=== PATIENT | female | born 1970 | race Caucasian/White ===

== ENCOUNTER → 2017-10-13 07:02 | Outpatient (CLI) | payer OTHER, SELFPAY ==
[2017-10-13 07:30] LABS: Basophils % 0.5 % (0.1-2.0); Eosinophils # 0.4 K/mm3 (0.0-0.4); Eosinophils % 4.9 % (0.1-12.0); Hematocrit 41.7 % (37.0-47.0); Hemoglobin 13.6 g/dL (12.2-16.2); Lymphocytes % 27.6 K/mm3 (10-50); Mean Corpuscular HGB Conc 32.6 g/dL (31.8-35.4); Mean Corpuscular Hemoglobin 29.4 pg (27.0-31.2); Mean Platelet Volume 7.3 fl (7.4-10.4); Monocytes # 0.6 K/mm3 (0.1-1.0); Monocytes % 8.5 % (1.7-9.3); Neutrophils # 4.3 K/mm3 (1.8-7.8); Neutrophils % 58.5 % (37.0-80.0); Platelet Count 402 K/mm3 (142-424); Red Blood Count 4.64 M/mm3 (4.20-5.40); Red Cell Distribution Width 13.1 % (11.5-17.5); White Blood Count 7.4 K/mm3 (4.8-10.8)
[2017-10-13 07:54] LABS: Alanine Aminotransferase 28 U/L (12-78); Albumin Level 3.6 gm/dL (3.4-5.0); Alkaline Phosphatase 123 U/L (46-116); Anion Gap 12.8 mEq/L (5-15); Aspartate Amino Transferase 16 U/L (15-37); Bilirubin,Total 0.3 mg/dL (0.2-1.0); Blood Urea Nitrogen 7 mg/dL (7-18); Carbon Dioxide 28 mmol/L (21.0-32.0); Chloride 105 mmol/L (98-107); Chol/HDL Ratio 5.5 (1-3.5); Cholesterol 203 mg/dL (140-200); Estimated Glomerular Filt Rate 78 ml/min (>60); GFR (African American) 94 ML/MIN (>60); Globulin 3.6 gm/dl (1.3-3.2); Glucose 109 mg/dL (74-106); HDL Cholesterol 37 mg/dL (29-89); LDL Cholesterol 120 mg/dL (0-130); Potassium 3.8 mmoL/L (3.5-5.1); Sodium 142 mmol/L (136-145); Thyroid Stimulating Hormone 2.24 uIU/ml (0.358-3.740); Total Protein,Serum 7.2 gm/dL (6.4-8.2); Triglycerides 231 mg/dL (30-200); VLDL Cholesterol 46 mg/dL (0-40)
[2017-10-14 06:30] LABS: Vitamin D 25 Hydroxy 11.8 ng/mL (30.0-100.0)
[2017-10-14 10:38] LABS: Vitamin B12 284 pg/mL (232-1245)
== END ==
LOC: LAB 07:04
PROVIDERS: PCP Internal Medicine Adolescent Medicine; Visit Provider Nurse Practitioner Family
DX: R20.2 Paresthesia of skin (principal); Z00.00 Encounter for general adult medical examination without abnormal findings
CPT/HCPCS: 36415; 80053; 80061; 82607; 82652; 84443; 85025

== ENCOUNTER → 2017-10-14 14:51 | Outpatient (CLI) | payer OTHER, SELFPAY ==
--- NOTE | 2017-10-14 14:54 | MM_ITS ---
MM Dig screening mamm BI w/CAD CAD Screening COMPARISON: None, this is baseline INDICATION: There is no personal or family history of breast cancer TECHNIQUE: Standard CC and MLO images were obtained. R2 CAD reviewed. FINDINGS: Mild to moderate fibroglandular densities are seen in the central portions of both breasts. There is no suspicious lesion and there are no suspicious microcalcifications. There are small nodes in both axilla. IMPRESSION: Mild to moderate breast density with no suspicious lesion seen BI-RADS Category: 1 Negative RECOMMENDED FOLLOW-UP: 1YR - 1 YEAR FOLLOW-UP (A letter has been sent to the patient regarding results of the study.)
== END ==
PROVIDERS: PCP Internal Medicine Adolescent Medicine; Visit Provider Nurse Practitioner Family
DX: Z12.31 Encounter for screening mammogram for malignant neoplasm of breast (principal)
CPT/HCPCS: 77067

== ENCOUNTER → 2018-07-13 07:03 | Outpatient (CLI) | payer OTHER, SELFPAY ==
[2018-07-13 08:18] LABS: Alanine Aminotransferase 33 U/L (12-78); Albumin Level 3.9 gm/dL (3.4-5.0); Albumin/Globulin Ratio 1.3 (1.1-1.8); Alkaline Phosphatase 121 U/L (46-116); Anion Gap 14.6 mEq/L (5-15); Aspartate Amino Transferase 18 U/L (15-37); Bilirubin,Total 0.3 mg/dL (0.2-1.0); Blood Urea Nitrogen 10 mg/dL (7-18); Calcium 9.4 mg/dL (8.5-10.1); Carbon Dioxide 28 mmol/L (21.0-32.0); Chloride 101 mmol/L (98-107); Chol/HDL Ratio 2.2 (1-3.5); Cholesterol 154 mg/dL (140-200); Creatinine,Serum 0.77 mg/dL (0.55-1.02); Estimated Glomerular Filt Rate 81 ml/min (>60); GFR (African American) 98 ML/MIN (>60); Globulin 3.1 gm/dl (1.3-3.2); Glucose 102 mg/dL (74-106); HDL Cholesterol 69 mg/dL (29-89); LDL Cholesterol 61 mg/dL (0-130); Potassium 4.6 mmoL/L (3.5-5.1); Sodium 139 mmol/L (136-145); Triglycerides 120 mg/dL (30-200); VLDL Cholesterol 24 mg/dL (0-40)
[2018-07-14 15:37] LABS: Vitamin B12 >2000 pg/mL (232-1245)
== END ==
PROVIDERS: Visit Provider Nurse Practitioner Family
DX: Z00.00 Encounter for general adult medical examination without abnormal findings (principal); E78.2 Mixed hyperlipidemia; E53.8 Deficiency of other specified B group vitamins; E55.9 Vitamin D deficiency, unspecified
CPT/HCPCS: 36415; 80053; 80061; 82607; 82652

== ENCOUNTER → 2018-08-06 09:45 | Outpatient (CLI) | payer OTHER, SELFPAY ==
--- NOTE | 2018-08-06 09:47 | XR_ITS ---
XR ankle wt bearing LT min 3V HISTORY: Follow-up fracture of the lateral malleolus ITS.REASON: LT ANKLE FX ORDERING PHYSICIAN: Sheryl Miranda MD PATIENT AGE: 47 years Comparison: 07/20/2018 FINDINGS: Minimally distracted transverse fracture involves the tip lateral malleolus as before the distal distraction appears somewhat improved. There is overlying soft tissue swelling. No other significant anomalies are evident. IMPRESSION: Transverse fracture on the tip of the lateral malleolus shows slight decreased distraction
== END ==
PROVIDERS: PCP Nurse Practitioner Family; Visit Provider Orthopaedic Surgery
DX: S93.409A Sprain of unspecified ligament of unspecified ankle, initial encounter (principal)
CPT/HCPCS: 73610

== ENCOUNTER → 2018-09-10 09:43 | Outpatient (CLI) | payer OTHER, SELFPAY ==
--- NOTE | 2018-09-10 09:46 | XR_ITS ---
XR ankle wt bearing LT min 3V HISTORY: Follow-up fracture ITS.REASON: LT ANKLE FX ORDERING PHYSICIAN: Sheryl Miranda MD PATIENT AGE: 47 years Comparison: 08/06/2018 FINDINGS: Nondisplaced fracture involving the tip of the lateral malleolus is once again noted. Fracture lines are somewhat more circumscribed and nondisplaced. Soft tissue swelling has improved. IMPRESSION: Healing avulsion fracture of the tip of the lateral malleolus
== END ==
PROVIDERS: PCP Internal Medicine Adolescent Medicine; Visit Provider Orthopaedic Surgery
DX: S82.892A Other fracture of left lower leg, initial encounter for closed fracture (principal)
CPT/HCPCS: 73610

== ENCOUNTER 2018-10-06 15:30 | Outpatient (RCR) | payer OTHER, SELFPAY ==
--- NOTE | 2018-09-14 10:59 | HMH.PTOPEV ---
PT Outpatient Evaluation Rehab PT Outpatient Evaluation Start: 09/14/18 10:24 Freq: Status: Active Protocol: Document 09/14/18 10:24 [place]IA (Rec: 09/14/18 10:49 PHORNE [id number]) Electronically Signed By Jackson Pitt, PT 09/14/18 10:24 Outpatient Therapy Subjective History Subjective History Pt is a 47 yowf with left lateral malleolus avulsion fracture with complaints of instability, tenderness, and burning along the lateral malleolus. Pt reports walking down stairs and and left ankle giving out on the last step and inverting causing an audible pop and her to fall over. Incident was on 07/20/18 and pt saw a doctor and was placed in a CAM boot with NWB on 07/23. On 09/01/18 pt was WBAT with and without boot. Pt reports not wearing the boot at home which causes some pain . Pt reports being in 0/10 pain at the moment but being in 4/10 pain at worst. Pain is brought on when she does not wear the boot or she does activity. Pain is relieved when resting or wearing the boot. Pt reports pain is a sharp, burning sensation along the lateral mallelous. Pt finds stairs to be most difficult. Pt states being a chronic smoker. 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 Chief Complaint Stiff Gives out/Unstable Weakness Symptom Type Sharp Burning Symptoms Relieved By Rest/Positioning Ice Symptoms Aggravated By Standing Physical Activity Walking Prior Functional Limitations None Current Functional Limitations Recreation Activity Walking Stairs Balance Symptom Description Intermitt
== END 2018-10-06 15:35 | disposition home or self-care (01) ==
LOC: PT 15:30
PROVIDERS: Visit Provider Orthopaedic Surgery
DX: S82.62XD Displaced fracture of lateral malleolus of left fibula, subsequent encounter for closed fracture with routine healing (principal); S93.401A Sprain of unspecified ligament of right ankle, initial encounter
CPT/HCPCS: 97010; 97014; 97016; 97033; 97110; 97112; 97163; G0283

== ENCOUNTER → 2019-02-17 08:40 | Outpatient (CLI) | payer OTHER, SELFPAY ==
--- NOTE | 2019-02-17 08:46 | MM_ITS ---
MM Dig screening mamm BI w/CAD CAD Screening COMPARISON: Digital mammograms with CAD 10/14/2017 INDICATION: There is no personal or family history of breast cancer TECHNIQUE: Standard CC and MLO images were obtained. R2 CAD reviewed. FINDINGS: Scattered fibroglandular densities are seen in both breasts. There is a benign-appearing calcification right breast. There is a nodular density right axilla likely a low-lying noted and this was seen previously. There is no suspicious lesion and no suspicious microcalcifications. IMPRESSION: Fibrofatty parenchyma with no suspicious lesion seen BI-RADS Category: 2 Benign Finding(s) RECOMMENDED FOLLOW-UP: 1YR - 1 YEAR FOLLOW-UP (A letter has been sent to the patient regarding results of the study.)
== END ==
PROVIDERS: PCP Nurse Practitioner Family; Visit Provider Nurse Practitioner Family
DX: Z12.31 Encounter for screening mammogram for malignant neoplasm of breast (principal)
CPT/HCPCS: 77067

== ENCOUNTER → 2019-07-14 07:02 | Outpatient (CLI) | payer OTHER, SELFPAY ==
[2019-07-14 11:44] LABS: Alanine Aminotransferase 20 U/L (12-78); Albumin Level 4.2 gm/dL (3.4-5.0); Albumin/Globulin Ratio 1.5 (1.1-1.8); Alkaline Phosphatase 100 U/L (46-116); Anion Gap 15.6 mEq/L (5-15); Aspartate Amino Transferase 16 U/L (15-37); Bilirubin,Total 0.4 mg/dL (0.2-1.0); Blood Urea Nitrogen 10 mg/dL (7-18); Calcium 9.5 mg/dL (8.5-10.1); Carbon Dioxide 27 mmol/L (21.0-32.0); Chloride 103 mmol/L (98-107); Chol/HDL Ratio 2.3 (1-3.5); Cholesterol 134 mg/dL (140-200); Creatinine,Serum 0.84 mg/dL (0.55-1.02); Estimated Glomerular Filt Rate 73 ml/min (>60); GFR (African American) 88 ML/MIN (>60); Globulin 2.8 gm/dl (1.3-3.2); Glucose 98 mg/dL (74-106); HDL Cholesterol 59 mg/dL (29-89); LDL Cholesterol 55 mg/dL (0-130); Potassium 4.6 mmoL/L (3.5-5.1); Sodium 141 mmol/L (136-145); Triglycerides 99 mg/dL (30-200); VLDL Cholesterol 20 mg/dL (0-40)
[2019-07-15 21:11] LABS: Vitamin B12 >2000 pg/mL (232-1245)
[2019-07-15 21:12] LABS: Vitamin D 25 Hydroxy 41.7 ng/mL (30.0-100.0)
== END ==
PROVIDERS: Visit Provider Nurse Practitioner Family
DX: Z00.00 Encounter for general adult medical examination without abnormal findings (principal); E78.2 Mixed hyperlipidemia; E53.8 Deficiency of other specified B group vitamins; E55.9 Vitamin D deficiency, unspecified
CPT/HCPCS: 36415; 80053; 80061; 82607; 82652

== ENCOUNTER 2020-02-15 17:04 | Emergency (ER) | payer OTHER, SELFPAY ==
--- NOTE | 2020-02-15 17:19 | XR_ITS ---
PROCEDURE: XR FOREARM LT 2V CLINICAL INDICATION: pain COMPARISON: No exams were available for comparison FINDINGS: No fracture or dislocation. No lytic or blastic change. There is normal mineralization. The joint spaces are well-preserved. No significant degenerative/arthritic changes. No erosive changes evident. Other findings:None. IMPRESSION: No acute findings. Dictated by: Mario Chavez MD 02/15/2020 18:01 Electronically signed by Mario Chavez MD in [place] 02/15/2020 18:01
[2020-02-15 17:20] VITALS: BP 128/64; PULSE 60; RESP 19; TEMP 36.7; O2SAT 99; BMI 26.6
--- NOTE | 2020-02-15 17:58 | HMH.EDUTC ---
[facility] [place] Disposition Clinical Impression: Left wrist tendonitis, Left wrist pain, Numbness of left hand Disposition: Home, Self-Care Condition on Discharge: Good Instructions: De Quervain Tenosynovitis, DI for Trigger Finger, DI for Carpal Tunnel Syndrome Additional Instructions: Wear the wrist splint that you have as much time as tolerated. Rest the wrist and try to avoid repetitive motions with it. Take the steroids as directed. Start the pack in the morning. Follow up with Dr. Delgadillo (orthopedics). I put in a referral, but you need to call and get yourself an appointment. GO TO THE ER FOR ANY WORSENING SYMPTOMS OR CONCERNS Prescriptions: methylPREDNISolone [Medrol] 4 mg PO DIRECTED 6 Days #21 tab.ds.pk Transmission Status: Received by [facility] Referrals: Natalia Madera APRN [Primary Care Provider] - Arnold Delgadillo MD [Staff Physician] - Time of Disposition: 18:03 Medical Decision Making - Medical Records Medical records reviewed: No: I reviewed the patient's medical records. - Fred Inquiry Pt receiving controlled substance: No Vital Signs: 02/15/20 17:20 02/15/20 18:06 Temperature 98.0 F 98.0 F Temperature Source Temporal Artery Scan Pulse Rate 60 Pulse Rate [Right Brachial] 60 Respiratory Rate 19 19 Blood Pressure 125/64 Blood Pressure [Right Arm] 128/64 Blood Pressure Mean [Right Arm] 85 Blood Pressure Source [Right Arm] Automatic Cuff Blood Pressure Position [Right Arm] Sitting 02 Sat by Pulse Oximetry 99 Oxygen Delivery Method Room Air [facility] [place] HPI - General Stated complaint: Left wrist pain Time Seen by Provider: 02/15/20 17:25 Mode of Arrival: Ambulatory Source of Information: Patient Limitations: No Limitations Description of Symptoms (Recalled from Triage Doc. by RN): PATIENT C/O PAIN TO LEFT WRIST/FOREARM FOR A WHILE, HOWEVER IT HAS GOTTEN PROGRESSIVELY WORSE OVER THE PAST 2 DAYS. 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 She has had these symptoms intermitently for the past several months, but over the past 2 days they have got worse. She denies any known injury or fall that affected the wrist. - Related Data Home Medications Medication Instructions Recorded Confirmed Ropinirole HCl [Requip] 0.5 mg PO BID 06/19/18 09/02/19 Meloxicam [Mobic 7.5mg Tab] 7.5 mg PO DAILY 06/16/19 09/02/19 buPROPion HCL [Wellbutrin 100mg 300 mg PO DAILY 06/16/19 09/02/19 Tablet] cloNIDine HCL [cloNIDine 0.1mg 0.1 mg PO DAILY 09/02/19 09/02/19 Tablet] Previous Rx's Medication Instructions Recorded Ondansetron [Zofran 4mg ODT] 4 mg PO Q8HP PRN #20 tab.rapdis 09/02/19 Cyclobenzaprine HCl [Flexeril 10mg 10 mg PO TID PRN #15 tab 10/13/19 tablet] methylPREDNISolone [Medrol 4mg 4 mg PO DIRECTED #21 tab 10/13/19 tab] methylPREDNISolone [Medrol] 4 mg PO DIRECTED 6 Days #21 02/15/20 tab.ds.pk Allergies Allergy/AdvReac Type Severity Reaction Status Date / Time No Known Allergies Allergy Verified 11/29/18 09:27 - Worker's Comp Is this a Worker's Comp case?: No [facility] History - Hepatitis A Screen Drug use history?: No High risk sexual behaviors?: No History of sexually transmitted infection?: No Currently employed?: No Childcare worker?: No Do you have indoor plumbing?: Yes Do you have electricity?: Yes Attestation statement:: This patient has been screened for Hepatitis A risk factors. I have reviewed the patient's past medical history: Yes Medical History: Reports:: Anxiety, Asthma, Hyperlipidemia Denies:: Cancer, Diabetes Mellitus Type 1, Diabetes Mellitus Type 2, Int
[2020-02-15 18:06] VITALS: BP 125/64; PULSE 60; RESP 19; TEMP 36.7; O2SAT 99
== END 2020-02-15 18:10 | disposition home or self-care (01) ==
PROVIDERS: Emergency Provider Nurse Practitioner Family; PCP Nurse Practitioner Family
DX: M25.532 Pain in left wrist (principal); M77.8 Other enthesopathies, not elsewhere classified; E78.5 Hyperlipidemia, unspecified; F41.9 Anxiety disorder, unspecified; J45.909 Unspecified asthma, uncomplicated; Z79.899 Other long term (current) drug therapy; F17.210 Nicotine dependence, cigarettes, uncomplicated
CPT/HCPCS: 73090; 99201

== ENCOUNTER 2020-03-01 07:57 | Outpatient (RCR) | payer OTHER, SELFPAY ==
--- NOTE | 2020-03-01 09:04 | HMH.OTOPEV ---
OT Inpatient Evaluation Rehab OT Outpatient Eval Start: 03/01/20 08:45 Freq: Status: Active Protocol: Document 03/01/20 08:46 RAYMUNDO (Rec: 03/01/20 09:03 HARLEYJAY [id number]) Electronically Signed By Lori Cardenas OT 03/01/20 08:46 Outpatient Therapy Subjective History Subjective History 49 year old female being referred to OP OT services after having increase L wrist pain ~2-3 weeks. However Patient stated this has been ongoing for several months and wears splint at night. 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 Chief Complaint Pain,Swelling,Weakness, Decreased Child Day Care Teacher Strength Symptom Type Ache,Sharp Symptoms Relieved By Ice Symptoms Aggravated By Physical Activity,Twisting Prior Functional Limitations None Current Functional Limitations Reaching,Lifting Symptom Description Constant but Variable Level of pain today (0-10) 0 Pain scale - at its best (0-10) 0 Pain scale - at its worst (0-10) 4 Wrist/Hand Eval Wrist Range of Motion Left Wrist Limitations of Range of Motion Pain Wrist Extension Active Range of Motion ( 70 degrees) Wrist Flexion Active Range of Motion ( 80 degrees) Wrist Radial Deviation Active Range of 20 Motion (degrees) Wrist Ulnar Deviation Active Range of 30 Motion (degrees) Child Day Care Teacher/Pinch Strength Right Child Day Care Teacher Strength Measurement (lbs) 64 Left Child Day Care Teacher Strength Measurement (lbs) 55 Special Tests Wrist Finklestein Test Positive Left OT Outpatient Assessment Impairments Problems/Impairments Palpation Tenderness,Impaired Strength,Subjective C/O Pain Prognosis Rehab Potential Good Clinical Impression Consistent with Diagnosis Yes Short Term Goals Number of Weeks 3 Decreased Palpation Tenderness Yes Increase Strength Yes: to improve left cracker sprayer strength to 55# Decrease Subjective C/O Pain Yes: 3/10 at worst Patient to be Ind w/ HEP Yes: strengthening Patient to be Ind w/ Advanced HEP Yes: strengthening and decrease swelling Residential Goals Number of Weeks 6 Decreased Palpation Tenderness Yes Increase Strength Yes: L cracker sprayer strength 60# Decrease Subjective C/O Pain Yes: 1/10 at worst Patient to be Ind w/ HEP Yes: advance strengthening Patient to be Ind w/ Advanced HEP Yes: advance strengthening and
== END 2020-03-01 07:59 | disposition home or self-care (01) ==
LOC: OT 07:57
PROVIDERS: Visit Provider Nurse Practitioner Family
DX: M65.4 Radial styloid tenosynovitis [de Quervain] (principal)
CPT/HCPCS: 97014; 97033; 97035; 97165; G0283

== ENCOUNTER → 2020-03-01 09:24 | Outpatient (CLI) | payer OTHER, SELFPAY ==
--- NOTE | 2020-03-01 09:34 | MM_ITS ---
PROCEDURE: MM DIG SCREENING MAMM BI W/CAD Digital Breast Tomosynthesis Included CLINICAL INDICATION: SCREENING There is no personal or family history of breast cancer. COMPARISON: [facility] MM Dig screening mamm BI w/CAD from 10/14/2017 DIG MAMM-SCREEN YESI from 02/17/2019 TECHNIQUE: Standard CC and MLO images and 3D Tomosynthesis was obtained. R2 CAD reviewed. FINDINGS: Mild to moderate scattered fibroglandular densities are seen in the central portions of both breast and the findings are bilateral and symmetrical. There is a low-lying node right axilla. There are fatty replaced nodes in both axilla. There is no new or suspicious lesion in either breast and no suspicious microcalcifications. IMPRESSION: Fibrofatty parenchyma with no suspicious lesions seen BI-RAD Category: 1 Negative FOLLOW-UP: 1YR 1 Year Follow-up (A letter has been sent to the patient regarding results of the study.) Dictated by: Dr. Lowell Busby MD 03/03/2020 08:[address] Lowell Busby MD in [place] 03/03/2020 08:04
== END ==
PROVIDERS: PCP Nurse Practitioner Family; Visit Provider Nurse Practitioner Family
DX: Z12.31 Encounter for screening mammogram for malignant neoplasm of breast (principal)
CPT/HCPCS: 77063; 77067

== ENCOUNTER 2021-03-28 11:07 | Emergency (ER) | payer OTHER, SELFPAY ==
[2021-03-28 11:55] VITALS: BP 131/72; PULSE 82; RESP 17; TEMP 37.4; O2SAT 98; BMI 29.2
--- NOTE | 2021-03-28 12:07 | HMH.EDUTC ---
[facility] [place] Disposition Clinical Impression: Spasm of muscle of lower back Disposition: Home, Self-Care Condition on Discharge: Good Instructions: Low Back Pain, DI for Low Back Pain Additional Instructions: Take Meloxicam medication as prescribed *Not additional anti-inflammatory like motrin, aleve, advil with the above amount of ibuprofen. You can still take Tylenol every 4 hours as needed if you need something else for pain *Ice 20 minutes every 2 hours for the first 48 hours after the initial injury followed by moist heat every 20 minutes 3-4 times a day to affected area *Muscle relaxer every 8 hours as needed for muscle spasms but remember, it WILL cause drowsiness You cannot take it and drive, operate machinery or care for small children. *Keep this area active, no movement leads to more stiffness, However take it easy and avoid heavy lifting pushing or pulling *Follow up with you family doctor if no improvement for further treatment Prescriptions: Cyclobenzaprine HCl [Flexeril 10mg tablet] 10 mg PO TID PRN 30 Days #15 tab PRN Reason: Muscle Spasm Transmission Status: Sent to [facility] Referrals: Natalia Madera APRN [Primary Care Provider] - As needed Time of Disposition: 12:17 Medical Decision Making - Fred Inquiry Pt receiving controlled substance: No Fred was queried for this patient: No Vital Signs: 03/28/21 11:55 Temperature 99.3 F Temperature Source Oral Pulse Rate [Left] 82 Respiratory Rate 17 Blood Pressure [Right Arm] 131/72 Blood Pressure Mean [Right Arm] 91 02 Sat by Pulse Oximetry 98 Orders (Tests/Meds): ED MEDICATIONS Discontinued Medications Generic Name Dose Route Start Last Admin Trade Name Manuelq PRN Reason Stop Dose Admin Methylprednisolone Sodium Succinate 125 mg 03/28/21 12:10 03/28/21 12:21 Methylprednisolone Sod Succ 125mg Vial IM 03/28/21 12:11 125 mg ONCE ONE Administration Medical Decision Narrative: Patient states that she has taken Flexeril in the past without complications or reactions [facility] [place] HPI - General Stated complaint: back pain, unknown origin Time Seen by Provider: 03/28/21 12:07 Mode of Arrival: Ambulatory Source of Information: Patient Limitations: No Limitations Description of Symptoms (Recalled from Triage Doc. by RN): pt c/o back that radiates down R leg ongoing for 2 days. HEENT Symptoms (Recalled from RN notes): No Resp Symptoms (Recalled from RN notes): No Skin Symptoms (Recalled from RN notes): No MS Symptoms (Recalled from RN notes): Yes (lower back pain radiating down R leg) Functional Status (Recalled from RN notes): na - History of Present Illness Provider Complaint: Patient states that she has been having spasm like pain in her lower back that radiates into hips and into right upper leg for a couple of days states that it comes and goes and when she is having tightness and spasms it hurts to sit Denies known injury and denies loss of control of bowel or bladder - Related Data Home Medications Medication Instructions Recorded Confirmed Ropinirole HCl [Requip] 0.5 mg PO BID 06/19/18 09/02/19 Meloxicam [Mobic 7.5mg Tab] 7.5 mg PO DAILY 06/16/19 09/02/19 buPROPion HCL [Wellbutrin 100mg 300 mg PO DAILY 06/16/19 09/02/19 Tablet] cloNIDine HCL [cloNIDine 0.1mg 0.1 mg PO DAILY 09/02/19 09/02/19 Tablet] Previous Rx's Medication Instructions Recorded Ondansetron [Zofran 4mg ODT] 4 mg PO Q8HP PRN #20 tab.rapdis 09/02/19 Cyclobenzaprine HCl [Flexeril 10mg 10 mg PO TID PRN #15 tab 10/13/19 tablet] methylPREDNISolone [Medrol 4mg 4 mg PO DIRECTED #21 tab 10/13/19 tab] methylPREDNISolone [Medrol] 4 mg PO DIRECTED 6 Days #21 02/15/20 tab.ds.pk Cyclobenzaprine HCl [Flexeril 10mg 10 mg PO TID PRN 30 Days #15 tab 03/28/21 tablet] Allergies Allergy/AdvReac Type Severity Reaction Status Date / Time No Known Allergies Allergy Verified 03/28/21 11:59 - Worker's Comp Is thi
[2021-03-28 12:37] VITALS: BP 131/72; PULSE 82; RESP 17; TEMP 37.4
== END 2021-03-28 12:37 | disposition home or self-care (01) ==
PROVIDERS: Emergency Provider Nurse Practitioner; PCP Nurse Practitioner Family
DX: M62.830 Muscle spasm of back (principal); F41.9 Anxiety disorder, unspecified; E78.5 Hyperlipidemia, unspecified; J45.909 Unspecified asthma, uncomplicated; Z79.899 Other long term (current) drug therapy
CPT/HCPCS: 96372; 99202; G0463

== ENCOUNTER → 2021-04-06 07:08 | Outpatient (CLI) | payer OTHER, SELFPAY ==
[2021-04-06 07:40] LABS: Basophils % 0.6 % (0.1-2.0); Eosinophils # 0.2 K/mm3 (0.0-0.4); Eosinophils % 2.3 % (0.1-12.0); Hematocrit 35.4 % (37.0-47.0); Lymphocytes # 1.8 K/mm3 (0.7-4.5); Lymphocytes % 23.5 % (10-50); Mean Corpuscular HGB Conc 33.9 g/dL (31.8-35.4); Mean Corpuscular Hemoglobin 29.2 pg (27.0-31.2); Mean Corpuscular Volume 86.1 fl (81-99); Mean Platelet Volume 7.6 fl (7.4-10.4); Monocytes # 0.6 K/mm3 (0.1-1.0); Neutrophils # 5.1 K/mm3 (1.8-7.8); Neutrophils % 65.6 % (37.0-80.0); Platelet Count 526 K/mm3 (142-424); Red Blood Count 4.11 M/mm3 (4.20-5.40); Red Cell Distribution Width 13.4 % (11.5-17.5); White Blood Count 7.7 K/mm3 (4.8-10.8)
[2021-04-06 08:33] LABS: Alanine Aminotransferase 76 U/L (12-78); Albumin Level 4.4 g/dl (3.5-5.0); Albumin/Globulin Ratio 1.6 (1.1-1.8); Alkaline Phosphatase 140 U/L (38-126); Anion Gap 13.4 mEq/L (5-15); Aspartate Amino Transferase 48 U/L (14-36); Bilirubin,Total 0.6 mg/dl (0.2-1.3); Blood Urea Nitrogen 10 mg/dl (7-17); Calcium 9.5 mg/dl (8.4-10.2); Carbon Dioxide 29 mmol/L (22.0-30.0); Chloride 100 mmol/L (98-107); Chol/HDL Ratio 4.2 (1-3.5); Cholesterol 181 mg/dl (140-200); Estimated Glomerular Filt Rate 77 ml/min (>60); GFR (African American) 93 ML/MIN (>60); Globulin 2.7 g/dL (1.3-3.2); Glucose 102 mg/dl (74-100); HDL Cholesterol 43 mg/dl (40-60); Potassium 4.4 mmoL/L (3.5-5.1); Sodium 138 mmol/L (136-145); Total Protein,Serum 7.1 g/dl (6.3-8.2); Triglycerides 197 mg/dl (30-150); VLDL Cholesterol 39 mg/dL (0-40)
[2021-04-06 08:45] LABS: Direct LDL Cholesterol 93.18 mg/dL (100-129)
[2021-04-06 08:53] LABS: 25-OH Vitamin D, Total 51.4 ng/mL (30-100)
[2021-04-06 09:24] LABS: Vitamin B12 > 1000 pg/mL (239-931)
== END ==
PROVIDERS: Visit Provider Nurse Practitioner Family
DX: Z00.00 Encounter for general adult medical examination without abnormal findings (principal); E78.2 Mixed hyperlipidemia; E53.8 Deficiency of other specified B group vitamins; E55.9 Vitamin D deficiency, unspecified
CPT/HCPCS: 36415; 80053; 80061; 82306; 82607; 85025

== ENCOUNTER → 2021-04-25 08:05 | Outpatient (CLI) | payer OTHER, SELFPAY ==
--- NOTE | 2021-04-25 08:08 | MM_ITS ---
PROCEDURE: MM DIG SCREENING MAMM BI W/CAD Digital Breast Tomosynthesis Included CLINICAL INDICATION: SCREENING COMPARISON: [facility] MM Dig screening mamm BI w/CAD from 10/14/2017 MG DIG MAMM-SCREEN YESI from 02/17/2019 MG MM DIG SCREENING MAMM BI W/CAD from 03/01/2020 TECHNIQUE: Standard CC and MLO images and 3D Tomosynthesis was obtained. R2 CAD reviewed. FINDINGS: There are scattered areas of fibroglandular density No malignant appearing mass or malignant-appearing microcalcification. No skin thickening architectural distortion or enlarged axillary nodes with no significant change IMPRESSION: No change with no evidence of malignancy BI-RAD Category: 1 Negative FOLLOW-UP: 1 YR 1 Year Follow-up (A letter has been sent to the patient regarding results of the study.) Dictated by: Mario Chavez MD 05/09/2021 13:11 Mario Chavez MD in [place] 05/09/2021 13:11
== END ==
PROVIDERS: PCP Nurse Practitioner Family; Visit Provider Nurse Practitioner Family
DX: Z12.31 Encounter for screening mammogram for malignant neoplasm of breast (principal)
CPT/HCPCS: 77063; 77067

== ENCOUNTER → 2021-05-08 07:29 | Outpatient (CLI) | payer OTHER, SELFPAY | PROVIDERS: Visit Provider Surgery | DX: Z01.812 Encounter for preprocedural laboratory examination (principal); Z11.52 Encounter for screening for COVID-19; Z12.11 Encounter for screening for malignant neoplasm of colon | CPT/HCPCS: C9803; U0003; U0005 ==

== ENCOUNTER 2021-05-10 08:21 | Day surgery (SDC) | payer OTHER, SELFPAY ==
[2021-05-08 10:11] VITALS: BMI 29.5
[2021-05-10 08:35] VITALS: BP 138/63; PULSE 65; RESP 18; TEMP 36.1; O2SAT 98
[2021-05-10 09:31] VITALS: O2SAT 97
--- NOTE | 2021-05-10 09:59 | HMH.SCOPE ---
- Procedure: Date: 05/10/21 Patient Date of :: 1970 Procedure Performed:: Colonoscopy Indications:: Screening Performing Provider:: Lexx Ponce MD Referring Provider:: . Sedation:: Monitored anesthesia care Procedure:: After informed consent was obtained the patient was taken to the endoscopy suite. Sedation ensued after the patient was transferred to the left lateral decubitus position. Pulse, blood pressure, and oxygen saturation were monitored throughout the procedure. Digital rectal exam revealed no significant abnormality. The colonoscope was placed in position. The entire colon was evaluated. The colonoscope was carefully removed and the patient was transferred to recovery in stable condition. Please see findings and specimens below for detail. Findings:: Bowel preparation fair to moderate with large volume irrigation and suctioning used to improve visualization Profound lack of relaxation Anterior anal mucosal thickening Specimens:: None Recommendations:: Repeat colonoscopy in 3 years secondary to slightly-limiting bowel preparation and profound lack of relaxation. If repeat colonoscopy reveals no significant abnormality timing of future colonoscopies will likely be significantly extended. Serial digital rectal exam Complications:: No immediate Estimated blood obtained (mL): 1
[2021-05-10 10:01] VITALS: BP 83/50; PULSE 69; RESP 18; TEMP 36.2; O2SAT 96
[2021-05-10 10:11] VITALS: BP 85/47; PULSE 62; RESP 16; O2SAT 99
[2021-05-10 10:21] VITALS: BP 100/71; PULSE 72; RESP 16; O2SAT 98
[2021-05-10 10:31] VITALS: BP 119/74; PULSE 67; RESP 18; O2SAT 98
--- NOTE | 2021-05-10 11:00 | P.PN_ITS ---
[facility] Anesthesia Checklist - Patient Identification Patient Identification: Arm Band, Verbal (Name & ) - Structural Data Admitted From: Home Planned Operative Procedure/s: colon Consent for Planned Operative Procedure(s) Verified: Yes Verified Documents: History and Physical - NPO Status Verified Time NPO: 00:00 - Additional verifications Patient : No Anesthesia Reactions: No Hx Blood Transfusions: No Blood Transfusion Reaction: No Cephalosporin Allergy: No Previous Colonoscopy: Yes - Cardiovascular Assessment Heart Sounds: S1 & S2 Pulse Strength: Baseline Pulse Rhythm: Regular Peripheral Edema: No - Airway Assessment C-Spine Mobility Assessed: Yes TMJ Mobility Assessed: Yes Dentition: Dentures-good fit - Neurological Assessment Level of Consciousness: Awake, Alert, Appropriate Hx Seizures: No Numbness or tingling in extremities: No - Anesthesia Plan Anesthesia Risk discussed: Yes Anesthesia Plan: Verified ASA Class: II Anesthesia Type: MAC [facility] History I have reviewed the patient's past medical history: Yes Medical History: Reports:: Anxiety, Asthma, Hyperlipidemia Denies:: Cancer, Diabetes Mellitus Type 1, Diabetes Mellitus Type 2, Internal Pacemaker, MRSA, Seizures *Have you ever received a pneumonia vaccine?: No *Have you received a flu vaccine this season?: Yes Other Medical History: Reports: Other Anesthesia experience/problems:: none Other Surgeries: Yes: Other. No: Pacemaker Amputation: No Fractures: Yes - *Social History Last grade of school completed: High school graduate Smoking Status: Former smoker Tobacco Type: cigarettes # Packs/Day (cigarettes): 1 Alcohol Intake: never Alcohol Intake Frequency:: holidays/special occasions only Substance Use Type: denies use *Occupational Status:: employed *Travel in the last 8 weeks: None - Psychiatric History Pschychiatric History:: Reports:: Anxiety Family Hx:: No significant family history
== END 2021-05-10 10:31 | disposition home or self-care (01) ==
LOC: OUTP 08:22
PROVIDERS: PCP Nurse Practitioner Family; Visit Provider Surgery
PROC: 0DJD8ZZ Inspection of Lower Intestinal Tract, Via Natural or Artificial Opening Endoscopic (ICD-10-PCS; CPT 45378; principal; 2021-05-10 09:30)
DX: Z12.11 Encounter for screening for malignant neoplasm of colon (principal); K62.89 Other specified diseases of anus and rectum; F41.9 Anxiety disorder, unspecified; J45.909 Unspecified asthma, uncomplicated; E78.5 Hyperlipidemia, unspecified; Z87.891 Personal history of nicotine dependence; Z79.899 Other long term (current) drug therapy
CPT/HCPCS: 45378

== ENCOUNTER → 2022-02-07 05:54 | Outpatient (CLI) | payer OTHER, SELFPAY ==
[2022-02-07 08:01] LABS: Basophils # 0.1 K/mm3 (0-0.2); Basophils % 1.8 % (0.1-2.0); Eosinophils # 0.2 K/mm3 (0.0-0.4); Hematocrit 38.8 % (37.0-47.0); Hemoglobin 12.7 g/dL (12.2-16.2); Lymphocytes # 2.2 K/mm3 (0.7-4.5); Lymphocytes % 37.4 % (10-50); Mean Corpuscular HGB Conc 32.8 g/dL (31.8-35.4); Mean Corpuscular Hemoglobin 29.8 pg (27.0-31.2); Mean Platelet Volume 8.5 fl (7.4-10.4); Monocytes # 0.5 K/mm3 (0.1-1.0); Monocytes % 8.1 % (1.7-9.3); Neutrophils # 2.9 K/mm3 (1.8-7.8); Neutrophils % 48.7 % (37.0-80.0); Platelet Count 324 K/mm3 (142-424); Red Blood Count 4.26 M/mm3 (4.20-5.40); White Blood Count 5.9 K/mm3 (4.8-10.8)
[2022-02-07 08:54] LABS: Alanine Aminotransferase 33 U/L (12-78); Albumin/Globulin Ratio 1.5 (1.1-1.8); Alkaline Phosphatase 121 U/L (38-126); Aspartate Amino Transferase 31 U/L (14-36); Bilirubin,Total 0.2 mg/dl (0.2-1.3); Blood Urea Nitrogen 11 mg/dl (7-17); Calcium 9.4 mg/dl (8.4-10.2); Carbon Dioxide 30 mmol/L (22.0-30.0); Chloride 103 mmol/L (98-107); Chol/HDL Ratio 2.8 (1-3.5); Cholesterol 140 mg/dl (140-200); Estimated Glomerular Filt Rate 76 ml/min (>60); GFR (African American) 92 ML/MIN (>60); Globulin 2.6 g/dL (1.3-3.2); Glucose 106 mg/dl (74-100); HDL Cholesterol 50 mg/dl (40-60); Sodium 138 mmol/L (136-145); Total Protein,Serum 6.6 g/dl (6.3-8.2); Triglycerides 168 mg/dl (30-150); VLDL Cholesterol 34 mg/dL (0-40)
[2022-02-07 09:05] LABS: Direct LDL Cholesterol 53.52 mg/dL (100-129)
[2022-02-07 09:44] LABS: Vitamin B12 529 pg/mL (239-931)
[2022-02-07 17:36] LABS: Hemoglobin A1C 5.7 % (4.0-6.0)
== END ==
PROVIDERS: Internal Medicine Adolescent Medicine; PCP Nurse Practitioner Family; Visit Provider Nurse Practitioner Family
DX: Z00.00 Encounter for general adult medical examination without abnormal findings (principal); E78.2 Mixed hyperlipidemia; E53.8 Deficiency of other specified B group vitamins; E55.9 Vitamin D deficiency, unspecified; R73.09 Other abnormal glucose
CPT/HCPCS: 36415; 80053; 80061; 82306; 82607; 83036; 85025

== ENCOUNTER 2022-08-20 14:10 | Emergency (ER) | payer OTHER, SELFPAY ==
[2022-08-20 14:20] VITALS: BP 140/92; PULSE 85; RESP 19; TEMP 37; O2SAT 96; BMI 31.7
--- NOTE | 2022-08-20 15:35 | EXP.UTC ---
Discharge Plan Disposition Patient Disposition: Home, Self-Care Condition: Good Prescriptions Prescriptions: New amoxicillin 875 mg tablet 875 mg PO Q12H Qty: 20 0RF No Action ropinirole 0.5 MG tablet 0.5 mg PO BID bupropion HCl 100 MG tablet 300 mg PO DAILY meloxicam 7.5 MG tablet 7.5 mg PO DAILY clonidine HCl 0.1 MG tablet 0.1 mg PO DAILY atorvastatin 20 mg tablet 20 mg PO DAILY Label Comments: TAKE ONE TABLET BY MOUTH EVERY DAY AT BEDTIME fluticasone propion-salmeterol [Advair Diskus] 250-50 mcg/dose blister with device 1 ea INHALATION DAILY Referrals Follow up/Referrals: Natalia Madera APRN [Primary Care Provider] - See instructions Activity Restrictions/Add. Instructions Additional Instructions/Restrictions: *Monitor Temp, Over the counter Motrin or Tylenol as directed/as needed Tylenol every 4 hours and Motrin every 6 hours (as long as your family doctor has told you that you can take it) for fever or pain. and straight to ER if unable to lower temp less than 101.0 after medication given *Warm salt water gargles may help to soothe the throat *Throat Lozenges? *Warm fluids like tea with honey may help to soothe the throat? *Sleep elevated *Humidifier/Vaporizer *Flonase 2 sprays in each nostril daily but be aware that it may take 2-3 days before you notice improvement Follow up IMMEDIATELY for new or worsening symptoms or no Noticeable improvement over the next 48-72 hours. 911 for difficulty breathing or swallowing Clinical Impressions Clinical Impression: Otitis media Instructions Patient Instructions: Amoxicillin, DI for Nasal Congestion Discharge ED Provider: Lyubov Vail [facility] [place] HPI General Stated complaint: RT ear pain, sinus pain Mode of Arrival: Ambulatory Source of Information: Patient Time Seen by Provider: 08/20/22 15:36 Description of Symptoms (Recalled from Triage Doc. by RN): pt states that she has sinus congestion, and ear pain right HEENT Symptoms (Recalled from RN notes): Yes Resp Symptoms (Recalled from RN notes): No Skin Symptoms (Recalled from RN notes): No MS Symptoms (Recalled from RN notes): No Functional Status (Recalled from RN notes): n/a History of Present Illness Provider Complaint: Patient states that she has been having some sinus congestion and having pain in her right ear that it has continued to get worse over the last few days States that today she felt like her ear was full and couldnt hear well out of it Related Data Home Medications Medication Instructions Recorded Confirmed ropinirole 0.5 mg tablet 0.5 mg PO BID RLS 06/19/18 08/20/22 bupropion HCl 100 mg tablet 300 mg PO DAILY Anxiety 06/16/19 08/20/22 meloxicam 7.5 mg tablet 7.5 mg PO DAILY Arthritis 06/16/19 08/20/22 clonidine HCl 0.1 mg tablet 0.1 mg PO DAILY MOOD 09/02/19 05/10/21 atorvastatin 20 mg tablet 20 mg PO DAILY Cholesterol 08/20/22 08/20/22 fluticasone 250 mcg-salmeterol 50 1 ea inhalation DAILY Breathing 08/20/22 08/20/22 mcg/dose blistr powdr for problems inhalation (Advair Diskus) Previous Rx's Medication Instructions Recorded amoxicillin 875 mg tablet 875 mg PO Q12H #20 tabs 08/20/22 Allergies Allergy/AdvReac Type Severity Reaction Status Date / Time No Known Allergies Allergy Verified 08/20/22 14:40 Worker's Comp Is this a Worker's Comp case?: No [facility] Dis[facility]: The information contained in this section may have been updated after the patient was seen, as this information can be updated by other users. Social History Smoking Status: Former smoker second hand exposure: Yes alcohol intake: never substance use type: denies use current occupational status: employed Travel in the last 8 weeks: None current occupational exposures/hazards: No caffeine: Yes ROS Obtained: Yes All systems reviewed & no additional complaints except as documented and Yes Systems revi
[2022-08-20 15:53] VITALS: BP 140/92; PULSE 85; RESP 19; TEMP 37; O2SAT 96
== END 2022-08-20 15:53 | disposition home or self-care (01) ==
PROVIDERS: Emergency Provider Nurse Practitioner; PCP Nurse Practitioner Family
DX: H66.91 Otitis media, unspecified, right ear (principal)
CPT/HCPCS: 99212; G0463

== ENCOUNTER → 2023-05-21 06:30 | Outpatient (CLI) | payer OTHER, SELFPAY ==
[2023-05-21 07:29] LABS: Basophils # 0.1 K/mm3 (0-0.2); Basophils % 0.7 % (0.1-2.0); Eosinophils # 0.2 K/mm3 (0.0-0.4); Hematocrit 40.8 % (37.0-47.0); Hemoglobin 13.3 g/dL (12.2-16.2); Lymphocytes # 1.8 K/mm3 (0.7-4.5); Lymphocytes % 23.4 % (10-50); Mean Corpuscular HGB Conc 32.5 g/dL (31.8-35.4); Mean Corpuscular Hemoglobin 28.2 pg (27.0-31.2); Mean Corpuscular Volume 86.9 fl (81-99); Mean Platelet Volume 8.1 fl (7.4-10.4); Monocytes # 0.6 K/mm3 (0.1-1.0); Monocytes % 7.8 % (1.7-9.3); Neutrophils # 5.1 K/mm3 (1.8-7.8); Neutrophils % 66.1 % (37.0-80.0); Platelet Count 316 K/mm3 (142-424); Red Blood Count 4.69 M/mm3 (4.20-5.40); Red Cell Distribution Width 13.5 % (11.5-17.5); White Blood Count 7.7 K/mm3 (4.8-10.8)
[2023-05-21 08:04] LABS: Chloride 102 mmol/L (98-107); Sodium 138 mmol/L (136-145)
[2023-05-21 08:05] LABS: Potassium 4.4 mmoL/L (3.5-5.1)
[2023-05-21 08:07] LABS: Alanine Aminotransferase 37 U/L (12-78); Albumin Level 4.2 g/dl (3.5-5.0); Albumin/Globulin Ratio 1.6 (1.1-1.8); Alkaline Phosphatase 110 U/L (38-126); Anion Gap 11.4 mEq/L (5-15); Aspartate Amino Transferase 36 U/L (14-36); Bilirubin,Total 0.4 mg/dl (0.2-1.3); Blood Urea Nitrogen 17 mg/dl (7-17); Carbon Dioxide 29 mmol/L (22.0-30.0); Cholesterol 157 mg/dl (140-200); Estimated Glomerular Filt Rate 76 ml/min (>60); GFR (African American) 92 ML/MIN (>60); Globulin 2.7 g/dL (1.3-3.2); Total Protein,Serum 6.9 g/dl (6.3-8.2); Triglycerides 294 mg/dl (30-150); VLDL Cholesterol 59 mg/dL (0-40)
[2023-05-21 08:08] LABS: Calcium 9.2 mg/dl (8.4-10.2); Chol/HDL Ratio 3.4 (1-3.5); Glucose 110 mg/dl (74-100); HDL Cholesterol 46 mg/dl (40-60)
[2023-05-21 09:21] LABS: 25-OH Vitamin D, Total 44.8 ng/mL (30-100)
[2023-05-21 09:54] LABS: Vitamin B12 > 1000 pg/mL (239-931)
[2023-05-22 12:12] LABS: Hemoglobin A1C 5.8 % (4.0-6.0)
== END ==
PROVIDERS: PCP Nurse Practitioner Family; Visit Provider Nurse Practitioner Family
DX: Z00.00 Encounter for general adult medical examination without abnormal findings (principal); E78.2 Mixed hyperlipidemia; E53.8 Deficiency of other specified B group vitamins; E55.9 Vitamin D deficiency, unspecified
CPT/HCPCS: 36415; 80053; 80061; 82306; 82607; 83036; 85025

== ENCOUNTER 2023-10-01 06:22 | Outpatient (CLI) | payer OTHER, SELFPAY ==
[2023-10-01 07:34] LABS: Basophils % 0.4 % (0.1-2.0); Eosinophils # 0.1 K/mm3 (0.0-0.4); Eosinophils % 1.7 % (0.1-12.0); Hematocrit 39.1 % (37.0-47.0); Hemoglobin 13.2 g/dL (12.2-16.2); Lymphocytes % 13.9 % (10-50); Mean Corpuscular HGB Conc 33.8 g/dL (31.8-35.4); Mean Corpuscular Volume 88.9 fl (81-99); Monocytes # 0.5 K/mm3 (0.1-1.0); Monocytes % 7.2 % (1.7-9.3); Neutrophils # 5.4 K/mm3 (1.8-7.8); Neutrophils % 76.8 % (37.0-80.0); Platelet Count 316 K/mm3 (142-424); Red Cell Distribution Width 13.3 % (11.5-17.5)
[2023-10-01 07:46] LABS: Chloride 104 mmol/L (98-107); Potassium 4.3 mmoL/L (3.5-5.1); Sodium 136 mmol/L (136-145)
[2023-10-01 07:49] LABS: Alanine Aminotransferase 39 U/L (12-78); Albumin Level 4.3 g/dl (3.5-5.0); Albumin/Globulin Ratio 1.6 (1.1-1.8); Alkaline Phosphatase 114 U/L (38-126); Anion Gap 9.3 mEq/L (5-15); Aspartate Amino Transferase 41 U/L (14-36); Bilirubin,Total 0.8 mg/dl (0.2-1.3); Blood Urea Nitrogen 15 mg/dl (7-17); Carbon Dioxide 27 mmol/L (22.0-30.0); Cholesterol 155 mg/dl (140-200); Estimated Glomerular Filt Rate 76 ml/min (>60); GFR (African American) 92 ML/MIN (>60); Globulin 2.7 g/dL (1.3-3.2); Triglycerides 227 mg/dl (30-150); VLDL Cholesterol 45 mg/dL (0-40)
[2023-10-01 07:50] LABS: Calcium 9.2 mg/dl (8.4-10.2); Chol/HDL Ratio 3.8 (1-3.5); Glucose 109 mg/dl (74-100); HDL Cholesterol 41 mg/dl (40-60)
[2023-10-01 12:33] LABS: 25-OH Vitamin D, Total 20.4 ng/mL (30-100)
[2023-10-01 13:07] LABS: Hemoglobin A1C 5.8 % (4.0-6.0)
[2023-10-01 13:24] LABS: Direct LDL Cholesterol 70.38 mg/dL (100-129)
[2023-10-01 14:03] LABS: Vitamin B12 735 pg/mL (239-931)
== END 2023-10-01 23:59 ==
LOC: LAB 06:23
PROVIDERS: PCP Nurse Practitioner Family; Visit Provider Nurse Practitioner Family
DX: R73.09 Other abnormal glucose (principal); E78.2 Mixed hyperlipidemia; E53.8 Deficiency of other specified B group vitamins; E55.9 Vitamin D deficiency, unspecified
CPT/HCPCS: 36415; 80053; 80061; 82306; 82607; 83036; 85025

== ENCOUNTER 2023-10-08 13:13 | Outpatient (CLI) | payer OTHER, SELFPAY ==
--- NOTE | 2023-10-08 13:17 | MM_ITS ---
PROCEDURE INFORMATION: Exam: MG Bilateral Screening 3D Mammography Exam date and time: 10/08/2023 1:19 PM Age: 53 years old Clinical indication: Screening mammogram TECHNIQUE: Imaging protocol: Bilateral Screening tomosynthesis and 2D mammography including computer-aided detection (CAD) when performed. COMPARISON: 1. MG MM DIG SCREENING MAMM BI W/CAD 04/25/2021 8:03 AM 2. MG MM DIG SCREENING MAMM BI W/CAD 03/01/2020 9:39 AM 3. MG DIG MAMM-SCREEN YESI 02/17/2019 9:05 AM 4. MG SCBI MM Dig screening mamm BI w/CAD 10/14/2017 3:08 PM FINDINGS: MAMMOGRAPHY: Breast composition: There are scattered areas of fibroglandular density. Mass: None. Architectural distortion: No new or suspicious architectural distortion. Calcifications: No new or suspicious calcifications are present Asymmetric density: No new or suspicious asymmetric density is present Skin thickening: None. Axillary adenopathy: None. IMPRESSION: No mammographic evidence of malignancy. Recommend annual screening mammography unless otherwise clinically indicated. ASSESSMENT: BI-RADS category 1: Negative
== END 2023-10-08 23:59 ==
LOC: RAD 13:13
PROVIDERS: PCP Nurse Practitioner Family; Visit Provider Nurse Practitioner Family
DX: Z12.31 Encounter for screening mammogram for malignant neoplasm of breast (principal)
CPT/HCPCS: 77063; 77067

== ENCOUNTER 2024-04-13 08:13 | Outpatient (CLI) | payer OTHER, SELFPAY ==
--- NOTE | 2024-04-13 08:17 | US_ITS ---
FINAL REPORT CLINICAL HISTORY: ELEVATED LIVER ENZYMES COMPARISON: None FINDINGS: Sonographic images of the right upper quadrant were obtained. The pancreas is partially obscured.The liver has an unremarkable appearance.The gallbladder appears normal without evidence of gallstones. There may be a tiny amount of sludge in the gallbladder. There is no evidence of biliary ductal dilatation.The common duct measures 4mm. Limited images of the right kidney are unremarkable. IMPRESSION: Possible small sludge in the gallbladder. Reviewed, Interpreted and Dictated by Abhinav Boudreaux MD Transcribed by Naomi Escalante Authenticated and [facility]
== END 2024-04-13 23:59 | disposition home or self-care (01) ==
LOC: RAD 08:14
PROVIDERS: PCP Nurse Practitioner Family; Visit Provider Nurse Practitioner Family
DX: R74.8 Abnormal levels of other serum enzymes (principal)
CPT/HCPCS: 76705

== ENCOUNTER 2024-05-04 08:05 | Emergency (ER) | payer OTHER, SELFPAY ==
[2024-05-04 08:16] VITALS: BP 127/85; PULSE 74; RESP 18; TEMP 37; O2SAT 100; BMI 32.5
--- NOTE | 2024-05-04 08:45 | ED_ITS ---
Discharge Plan Disposition Patient Disposition: Home, Self-Care Condition: Good Prescriptions Prescriptions: New azithromycin [Zithromax] 250 mg tablet 250 mg PO UD DOSE PK Qty: 6 0RF Rx Instructions: Take two (2) tablets today, then one (1) tablet days #2 thru #5 methylprednisolone 4 mg Tablets,Dose Pack 4 mg PO DIRECTED 6 Days Qty: 21 0RF Rx Instructions: Take 1 pack as directed for 6 days guaifenesin [Mucinex] 600 mg tablet extended release 12hr 600 - 1,200 mg PO BIDP PRN (Reason: Congestion) Qty: 30 0RF benzonatate 100 mg capsule 100 mg PO TIDP PRN (Reason: Cough) Qty: 30 0RF No Action ropinirole 0.5 MG tablet 0.5 mg PO BID bupropion HCl 100 MG tablet 300 mg PO DAILY meloxicam 7.5 MG tablet 7.5 mg PO DAILY clonidine HCl 0.1 MG tablet 0.1 mg PO DAILY atorvastatin 20 mg tablet 20 mg PO DAILY Patient Comments: TAKE ONE TABLET BY MOUTH EVERY DAY AT BEDTIME fluticasone propion-salmeterol [Advair Diskus] 250-50 mcg/dose blister with device 1 ea INHALATION DAILY amoxicillin 875 mg tablet 875 mg PO Q12H Qty: 20 0RF Referrals Follow up/Referrals: Natalia Olson APRN [Primary Care Provider] - See instructions Activity Restrictions/Add. Instructions Additional Instructions/Restrictions: Drink plenty of fluids. Take tylenol or ibuprofen for pain or fever. Take the medications as directed. Follow up with your regular doctor. GO TO THE ER FOR ANY WORSENING SYMPTOMS Don't start the oral steroids (medrol dose pack) until tomorrow since you had the shot here Clinical Impressions Clinical Impression: Sinusitis Qualifiers: Sinusitis location: unspecified location Chronicity: unspecified Qualified Code(s): J32.9 - Chronic sinusitis, unspecified Instructions Patient Instructions: Sinusitis, DI for Sinusitis, Dexamethasone Injection Print Language Print Language: Indonesian Discharge ED Provider: Reinaldo Dotson [facility] [place] HPI General Stated complaint: head congestion cough Mode of Arrival: Ambulatory Source of Information: Patient Limitations: No Limitations Time Seen by Provider: 05/04/24 08:45 Description of Symptoms (Recalled from Triage Doc. by RN): Complaint of head and chest congestion for about a week. HEENT Symptoms (Recalled from RN notes): Yes Resp Symptoms (Recalled from RN notes): No Skin Symptoms (Recalled from RN notes): No MS Symptoms (Recalled from RN notes): No Functional Status (Recalled from RN notes): wnl History of Present Illness Provider Complaint: She states that for the past 1 week she has had worsening sinus congestion, sore throat, and cough. She has a history of asthma. Related Data Home Medications ?Medication ?Instructions ?Recorded ?Confirmed ropinirole 0.5 mg tablet 0.5 mg PO BID RLS 06/19/18 08/20/22 bupropion HCl 100 mg tablet 300 mg PO DAILY Anxiety 06/16/19 08/20/22 meloxicam 7.5 mg tablet 7.5 mg PO DAILY Arthritis 06/16/19 08/20/22 clonidine HCl 0.1 mg tablet 0.1 mg PO DAILY MOOD 09/02/19 05/10/21 atorvastatin 20 mg tablet 20 mg PO DAILY Cholesterol 08/20/22 08/20/22 fluticasone 250 mcg-salmeterol 50 1 ea inhalation DAILY Breathing 08/20/22 08/20/22 mcg/dose blistr powdr for problems inhalation (Advair Diskus) Previous Rx's ?Medication ?Instructions ?Recorded amoxicillin 875 mg tablet 875 mg PO Q12H #20 tabs 08/20/22 azithromycin 250 mg tablet 250 mg PO UD DOSE PK #6 tabs 05/04/24 (Zithromax) benzonatate 100 mg capsule 100 mg PO TIDP PRN Cough #30 caps 05/04/24 guaifenesin 600 mg tablet, 600 - 1,200 mg (1 - 2 x 600 mg) PO 05/04/24 extended release 12 hr (Mucinex) BIDP PRN Congestion #30 tabs methylprednisolone 4 mg tablets in 4 mg PO DIRECTED 6 days #21 tabs 05/04/24 a dose pack Allergies Allergy/AdvReac Type Severity Reaction Status Date / Time No Known Allergies Allergy Verified 08/20/22 14:40 Worker's Comp Is this a Worker's Comp case?: No [facility] Disclaimer: The information contained in this section may have been updated after the patient was seen, as this information can be updated by other users. Social History Smoking Status: Former smoker tobacco type: cigarettes packs per day: 1 second hand exposure: Yes alcohol intake: never substance use type: denies use current occupational status: employed Travel in the last 8 weeks: None current occupational exposures/hazards: No caffeine: Yes ROS Obtained: Yes All systems reviewed & no additional complaints except as documented Constitutional Constitutional: Reports poor appetite Eyes Eyes: Reports system reviewed and no additional complaints, except as documented ENT Ears, Nose, Mouth, and Throat: Reports as per HPI Cardiovascular Cardiovascular: Reports system reviewed and no additional complaints, except as documented and Denies chest pain Respiratory Respiratory: Denies shortness of breath, Denies chest congestion, Reports cough, Denies stridor and Denies wheezing Gastrointestinal Gastrointestingal: Reports system reviewed and no additional complaints, except as documented; Denies abdominal pain, diarrhea or vomiting Musculoskeletal Musculoskeletal: Reports system reviewed and no additional complaints, except as documented and Denies arthralgias Integumentary/Breasts Skin/Breast: Reports system reviewed and no additional complaints, except as documented and Denies rash Neurologic Neurologic: Denies paresthesias Allergic/Immunologic Allergic/Immunologic: Denies wheezing Physical Exam General General appearance: alert and in no apparent distress Eye Eye exam: Present normal appearance, PERRL and EOMI ENT ENT exam: Present mucous membranes moist and normal external ear exam Expanded ENT Exam External ear exam: Present normal external inspection TM/Canal exam: Bilateral TM: erythema and bulging Nose exam: Absent sinus tenderness Nasal speculum exam: Bilateral: normal Mouth exam: Present normal external inspection; Absent drooling Teeth exam: Present normal inspection Throat exam: Present tonsillar erythema and tonsillomegaly Neck Neck exam: Present normal inspection, full ROM and trachea midline; Absent tenderness, lymphadenopathy or thyromegaly Chest Chest inspection: Present normal inspection and symmetric chest wall rise; Absent tenderness or rash Respiratory Respiratory exam: Present normal lung sounds bilaterally; Absent respiratory distress, wheezes, stridor or accessory muscle use Cardiovascular Cardiovascular exam: Present regular rate, normal rhythm and normal heart sounds Abdominal Exam Abdominal exam: Present soft; Absent distention, tenderness, guarding, rebound or rigidity Extremities Exam Extremities exam: Present normal inspection, full ROM and normal capillary refill; Absent tenderness or calf tenderness Back Exam Back exam: Present normal inspection and full ROM; Absent tenderness Neurological Exam Neurological exam: Present alert and oriented X3 Psychiatric Psychiatric exam: Present normal affect and normal mood Skin Skin exam: Present warm, dry, intact and normal color Lymphatic Lymphatic Findings: no adenopathy Medical Decision Making Medical Records Medical records reviewed: No I reviewed the patient's medical records. Screening: Per USPSTF and CDC recommendations, given the prevalence of disease in our region, it is our hospital?s policy to screen for HIV and viral Hepatitis for all patients aged 18 and over and those with ongoing risk factors. Fred Inquiry Pt receiving controlled substance: No Vital Signs: 05/04/24 08:16 Temperature 98.6 F Temperature Source Oral Pulse Rate [Radial] 74 Respiratory Rate 18 Blood Pressure [Right Arm] 127/85 Blood Pressure Mean [Right Arm] 99 Blood Pressure Source [Right Arm] Automatic Cuff Blood Pressure Position [Right Arm] Sitting 02 Sat by Pulse Oximetry 100 Oxygen Delivery Method Room Air
[2024-05-04] MEDS: DEXAMETHASONE 4MG/ML 1ML VIAL 8 MG IM (08:58)
[2024-05-04 09:13] VITALS: BP 127/85; PULSE 74; RESP 18; TEMP 37; O2SAT 100
== END 2024-05-04 09:14 | disposition home or self-care (01) ==
PROVIDERS: Emergency Provider Nurse Practitioner Family; PCP Nurse Practitioner Family
DX: J01.90 Acute sinusitis, unspecified (principal); R05.9 Cough, unspecified
CPT/HCPCS: 96372; 99212; 99214; G0463; J1100

== ENCOUNTER 2024-05-10 06:58 | Outpatient (CLI) | payer OTHER, SELFPAY ==
[2024-05-10 08:29] LABS: Albumin Level 4.4 g/dl (3.5-5.0); Chloride 103 mmol/L (98-107); Potassium 3.7 mmoL/L (3.5-5.1); Sodium 137 mmol/L (136-145)
[2024-05-10 08:32] LABS: Alanine Aminotransferase 107 U/L (12-78); Albumin/Globulin Ratio 1.8 (1.1-1.8); Alkaline Phosphatase 106 U/L (38-126); Anion Gap 6.7 mEq/L (5-15); Aspartate Amino Transferase 57 U/L (14-36); Bilirubin,Total 0.7 mg/dl (0.2-1.3); Blood Urea Nitrogen 21 mg/dl (7-17); Carbon Dioxide 31 mmol/L (22.0-30.0); Estimated Glomerular Filt Rate 76 ml/min (>60); GFR (African American) 92 ML/MIN (>60); Globulin 2.5 g/dL (1.3-3.2); Total Protein,Serum 6.9 g/dl (6.3-8.2)
[2024-05-10 08:33] LABS: Calcium 9.5 mg/dl (8.4-10.2); Glucose 101 mg/dl (74-100)
== END 2024-05-10 23:59 | disposition home or self-care (01) ==
LOC: LAB 06:59
PROVIDERS: PCP Nurse Practitioner Family; Visit Provider Nurse Practitioner Family
DX: R74.8 Abnormal levels of other serum enzymes (principal)
CPT/HCPCS: 36415; 80053

== ENCOUNTER 2024-05-18 06:41 | Outpatient (CLI) | payer OTHER, SELFPAY ==
[2024-05-18 08:03] LABS: INR 0.97 (0.9-1.1); Prothrombin Time 10.9 seconds (10.1-12.5)
[2024-05-18 08:27] LABS: Albumin Level 4.5 g/dl (3.5-5.0); Chloride 101 mmol/L (98-107); Potassium 4.2 mmoL/L (3.5-5.1); Sodium 137 mmol/L (136-145)
[2024-05-18 08:30] LABS: Alanine Aminotransferase 41 U/L (12-78); Albumin/Globulin Ratio 1.6 (1.1-1.8); Alkaline Phosphatase 117 U/L (38-126); Anion Gap 13.2 mEq/L (5-15); Aspartate Amino Transferase 33 U/L (14-36); Bilirubin,Direct 0.3 mg/dl (0.0-0.4); Bilirubin,Indirect 0.3 mg/dL (0.0-0.9); Bilirubin,Total 0.6 mg/dl (0.2-1.3); Bilirubin,Unconjugated 0.3 mg/dL (0.0-1.1); Blood Urea Nitrogen 14 mg/dl (7-17); Carbon Dioxide 27 mmol/L (22.0-30.0); Estimated Glomerular Filt Rate 88 ml/min (>60); GFR (African American) 107 ML/MIN (>60); Globulin 2.8 g/dL (1.3-3.2); Glucose 109 mg/dl (74-100); Iron 90 ug/dL (37-170); Total Protein,Serum 7.3 g/dl (6.3-8.2)
[2024-05-18 08:40] LABS: Total Iron Binding Capacity 363 ug/dL (265-497)
[2024-05-18 08:41] LABS: Gamma Glutamyl Transpeptidase 73 U/L (12-43)
[2024-05-18 09:06] LABS: Ferritin 124 ng/ml (11.1-264)
[2024-05-19 09:53] LABS: HBsAg Screen Negative (Negative); HCV Ab Non Reactive (Non Reactive); Hep A Ab, IGM Negative (Negative); Hep B Core Ab, IgM Negative (Negative)
[2024-05-19 11:15] LABS: Alpha-1-Antitrypsin 141 mg/dL (101-187); Ceruloplasmin 34.4 mg/dL (19.0-39.0); Immunoglobulin G, Qn 851 mg/dL (586-1602)
[2024-05-19 15:26] LABS: Actin (Smooth Muscle) Antibody 4 Units (0-19); Endomysial IgA Antibody Negative (Negative); Mitochondrial (M2) Antibody <20.0 Units (0.0-20.0)
[2024-05-19 17:11] LABS: Deamidated Gliadin Abs, IgA 6 units (0-19); Deamidated Gliadin Abs, IgG 2 units (0-19); Liver-Kidney Microsomal Ab 1.1 Units (0.0-20.0); Tissue Transglutaminase IgA Ab <2 U/mL (0-3); Tissue Transglutaminase IgG Ab 3 U/mL (0-5)
[2024-05-20 08:54] LABS: Immunoglobulin A, Qn 264 mg/dL (87-352); Immunoglobulin M, Qn 136 mg/dL (26-217)
[2024-05-20 23:21] LABS: ALT (SGPT) P5P 41 IU/L (0-40); AST (SGOT) P5P 27 IU/L (0-40); Alpha 2-Macroglobulins, Qn 241 mg/dL (110-276); Apolipoprotein A-1 143 mg/dL (116-209); Bilirubin, Total 0.2 mg/dL (0.0-1.2); Cholesterol, Total 186 mg/dL (100-199); Fibrosis Score 0.14 (0.00-0.21); GGT 69 IU/L (0-60); Glucose 105 mg/dL (70-99); Haptoglobin 245 mg/dL (33-346); NASH Score 0.47 (0.00-0.25); Triglycerides 190 mg/dL (0-149)
[2024-05-21 08:22] LABS: Reticulin IgA Antibody Negative titer (Neg:<1:2.5)
[2024-06-29 13:58] LABS: Antinuclear Antibodies, IFA POSITIVE
== END 2024-05-18 23:59 | disposition home or self-care (01) ==
LOC: LAB 06:41
PROVIDERS: PCP Nurse Practitioner Family; Visit Provider Nurse Practitioner Family
DX: R74.8 Abnormal levels of other serum enzymes (principal)
CPT/HCPCS: 80074; 36415; 80053; 80076; 81256; 82103; 82390; 82728; 82784; 82977; 83516; 83540; 83550; 85610; 86038; 86255; 86256; 86376

== ENCOUNTER 2025-01-04 06:51 | Outpatient (CLI) | payer OTHER, SELFPAY ==
[2025-01-04 08:35] LABS: Alanine Aminotransferase 53 U/L (12-78); Albumin Level 4.8 g/dl (3.5-5.0); Albumin/Globulin Ratio 2.1 (1.1-1.8); Alkaline Phosphatase 113 U/L (38-126); Anion Gap 12.6 mEq/L (5-15); Aspartate Amino Transferase 39 U/L (14-36); Bilirubin,Total 0.7 mg/dl (0.2-1.3); Blood Urea Nitrogen 13 mg/dl (7-17); Calcium 9.6 mg/dl (8.4-10.2); Carbon Dioxide 26 mmol/L (22.0-30.0); Chloride 102 mmol/L (98-107); Estimated Glomerular Filt Rate 88 ml/min (>60); GFR (African American) 106 ML/MIN (>60); Globulin 2.3 g/dL (1.3-3.2); Glucose 104 mg/dl (74-100); Potassium 4.6 mmoL/L (3.5-5.1); Sodium 136 mmol/L (136-145); Total Protein,Serum 7.1 g/dl (6.3-8.2)
== END 2025-01-04 23:59 | disposition home or self-care (01) ==
LOC: LAB 06:52
PROVIDERS: PCP Nurse Practitioner Family; Visit Provider Nurse Practitioner Family
DX: K76.0 Fatty (change of) liver, not elsewhere classified (principal)
CPT/HCPCS: 36415; 80053

== ENCOUNTER 2025-05-26 06:57 | Outpatient (CLI) | payer OTHER, SELFPAY ==
[2025-05-26 07:48] LABS: Hematocrit 38.4 % (37.0-47.0); Hemoglobin 12.6 g/dL (12.2-16.2); Immature Granulocytes % 0.3 %; Mean Corpuscular HGB Conc 32.8 g/dL (31.8-35.4); Mean Corpuscular Hemoglobin 28.8 pg (27.0-31.2); Mean Corpuscular Volume 87.9 fl (81-99); Nucleated Red Blood Cells % 0 %; Platelet Count 334 K/mm3 (142-424); Red Blood Count 4.37 M/mm3 (4.20-5.40); Red Cell Distribution Width-SD 41.9 fL; White Blood Count 5.9 K/mm3 (4.8-10.8)
[2025-05-26 08:38] LABS: Cholesterol 143 mg/dl (140-200); HDL Cholesterol 45 mg/dl (40-60); Triglycerides 200 mg/dl (30-150)
[2025-05-26 08:54] LABS: 25-OH Vitamin D, Total 29.2 ng/mL (30-100)
[2025-05-26 09:27] LABS: Vitamin B12 556 pg/mL (239-931)
[2025-05-26 11:42] LABS: Hemoglobin A1C 5.7 % (4.0-6.0)
== END 2025-05-26 23:59 | disposition home or self-care (01) ==
LOC: LAB 06:58
PROVIDERS: PCP Nurse Practitioner Family; Visit Provider Nurse Practitioner Family
DX: Z00.00 Encounter for general adult medical examination without abnormal findings (principal); E78.2 Mixed hyperlipidemia; R73.9 Hyperglycemia, unspecified; E53.8 Deficiency of other specified B group vitamins; E55.9 Vitamin D deficiency, unspecified
CPT/HCPCS: 36415; 80061; 82306; 82607; 83036; 85025